=== PATIENT | female | born 1950 | race Asian ===

== ENCOUNTER 2016-10-02 06:51 | Day surgery (SDC) | payer BC, MEDICARE ==
[2016-10-02] VITALS (8 sets, daily range): BP systolic 98–132; BP diastolic 56–77
[~2016-10-02] VITALS: Ht 152.4 cm; Wt 47.6 kg
[~2016-10-02 06:51] MED LIST: ACTONEL35 MG PO; COUMADIN3 MG PO; COUMADIN4 MG PO; METOPROLOL TART25 MG ORAL; SIMVASTATIN40 MG PO; TYLENOL325 MG PO
[2016-10-02] MEDS ORDERED: LR 1000ml 1,000 ML IVLG SCH (07:00)
[2016-10-02] MEDS ORDERED: Propofol 10mg/ml 20ml IV ONE (08:00)
[2016-10-02] MEDS ORDERED: LR 1000ml ONE (08:00)
[2016-10-02] MEDS ORDERED: Lidocaine 1% MPF 10mg/ml 5ml ONE (08:00)
--- NOTE | 2016-10-02 08:10 | Anethesia Preoperative Eval ---
Anesthesia Pre-op PMH/ROS General Date of Evaluation: Oct 02, 2016 Time of Evaluation: 08:08 Anesthesiologist: sintia ASA Score: ASA 2 Mallampati Score Class I : Soft palate, uvula, fauces, pillars visible Class II: Soft palate, uvula, fauces visible Class III: Soft palate, base of uvula visible Class IV: Only hard plate visible Mallampati Classification: Class II Surgeon: cole Diagnosis: colon screening Surgical Procedure: colon screening Anesthesia History: none Family History: no anesthesia problems Allergies: Coded Allergies: No Known Allergies (Unverified , 04/29/12) Medications: see eMAR Past Medical History Cardiovascular: Reports: HTN, valve dz Pulmonary: Reports: COPD, Denies: DEMETRIA, asthma, other Neurologic/Psychiatric: Denies: CVA, TIA, dementia, depression/anxiety, other Endocrine: Denies: DM, hypothyroidism, other, steroids HEENT: Denies: EEK (L), EEK (R), cataract (L), cataract (R), glaucoma, other Hematology/Immune: Denies: DVT, anemia, bleeding disorder, other Musculoskeletal/Integumentary: Denies: DDD, DJD, OA, RA, edema, other PSxH Narrative: valve surgery Anesthesia Pre-op Phys. Exam Physician Exam Last Vital Signs Date Time Temp Pulse Resp B/P Pulse Ox O2 Delivery O2 Flow Rate FiO2 10/02/16 07:13 97.9 71 20 128/77 99 Room Air Constitutional: NAD Neurologic: CN 2-12 intact Cardiovascular: RRR Respiratory: CTA Gastrointestinal: S/NT/ND Airway Exam Mallampati Score: Class II MO: full ROM: full Dentures: no lower, no upper Anesthesia Pre-op A/P Studies Pre-op Studies: EKG - sr Risk Assessment & Plan Plan: mac Status Change Before Surgery: No Pre-Antibiotics Drug: none JESSICA ZHANG LEATHER SORTER Oct 02, 2016 08:10
--- NOTE | 2016-10-02 08:14 | Short Stay Surgery H&P ---
History of Present Illness History of Present Illness Chief Complaint see typed H&P HPI Salena Gupta is a 66 year old female who was admitted on for Colon Screening Patient History Allergies: Coded Allergies: No Known Allergies (Unverified , 04/29/12) PAST MEDICAL HISTORY: Past Surgeries: Social History: Medication History Scheduled Metoprolol Tartrate* (Metoprolol Tartrate*), 25 MG ORAL DAILY, (Reported) Simvastatin (Zocor), 40 MG PO QHS, (Reported) Warfarin Sod* (Coumadin*), 3 MG PO DAILY, (Reported) Discontinued Medications Acetaminophen (Tylenol), 650 MG PO EVERY 4 HOURS PRN, (Reported) Discontinued Reason: Pt stopped taking med Risedronate Sodium (Actonel), 35 MG PO ONCE A WEEK, (Reported) Discontinued Reason: MD discontinued med Warfarin Sod* (Coumadin*), 4 MG PO ONCE A WEEK, (Reported) Discontinued Reason: MD discontinued med Physical Exam Vital Signs Last Vital Signs Date Time Temp Pulse Resp B/P Pulse Ox O2 Delivery O2 Flow Rate FiO2 10/02/16 07:13 97.9 71 20 128/77 99 Room Air Plan Attestation Are the patient's medical conditions optimized for surgery? JERARDO WOODS Oct 02, 2016 08:14
--- NOTE | 2016-10-02 08:14 | Pre-Procedure Note/Attestation ---
Pre-Procedure Note/Attestation Complete Prior to Procedure Planned Procedure: not applicable Procedure Narrative: colon Indications for Procedure Pre-Operative Diagnosis: screening Attestation I attest that I discussed the nature of the procedure; its benefits; risks and complications; and alternatives (and the risks and benefits of such alternatives ), prior to the procedure, with the patient (or the patient's legal vaccine customer representative). I attest that, if there was a reasonable possibility of needing a blood transfusion, the patient (or the patient's legal vaccine customer representative) was given the [facility] standardized written summary, pursuant to the Jacques Mathew Blood Safety Act ([place] Health and Safety Code # 1645, as amended). I attest that I re-evaluated the patient just prior to the surgery and that there has been no change in the patient's H&P, except as documented below: JERARDO WOODS Oct 02, 2016 08:14
--- NOTE | 2016-10-02 08:46 | Endoscopy Procedure Note ---
Endoscopy Procedure Note Indication for Procedure: h/o polyps, screen Procedures Performed: colonoscopy Operative Findings/Diagnosis: mild R tics, mild rhoids Specimen: none Pt Tolerated Procedure Well: Yes Estimated Blood Loss: none Anesthesiologist: see report Anesthesia: MAC Medication Given: see anesthesia record Implant(s) used?: No 50 yrs or older w/o bx or poly: Yes 10yrs. F/U not recommended: Yes If not recommended, why?: 10 yrs. F/U needed: Yes 18 years or older w/prev. colo: Yes <3yrs. since last colonoscopy: No Med reason:<3 yrs.: System Reason:<3 yrs.: Last colonoscopy >= to 3yrs: Yes JERARDO WOODS Oct 02, 2016 08:46
--- NOTE | 2016-10-02 08:49 | Brief Operative Note ---
Immediate Post Operative Note Operative Note Chief Complaint: screen, h/o polyp Pre-op Diagnosis: screening Procedure: colon Post-op Diagnosis: mild R tics, mild rhoids Surgeon: dayron Anesthesiologist: see report Anesthesia: MAC Specimen: none Complications: none Condition: stable Estimated Blood Loss: none Drains: none Implant(s) used?: No JERARDO WOODS Oct 02, 2016 08:49
--- NOTE | 2016-10-02 09:44 | Immediate Post-Op Evaluation ---
Immediate Post-Op Evalulation Immediate Post-Op Evalulation Procedure: colonoscopy Date of Evaluation: Oct 02, 2016 Time of Evaluation: 08:50 IV Fluids: 300 Blood Pressure Systolic: 118 Blood Pressure Diastolic: 50 Pulse Rate: 58 Respiratory Rate: 14 O2 Sat by Pulse Oximetry: 98 Temperature (Fahrenheit): 97.8 Vomiting: No Complications none Patient Status: awake, reacts, patent Hydration Status: adequate Drug: none JESSICA ZHANG CRNA Oct 02, 2016 09:44
--- NOTE | 2016-10-02 09:45 | 48 Hour Post Anesthesia Eval ---
Post Anesthesia Evaluation Procedure: colonoscopy Date of Evaluation: Oct 02, 2016 Time of Evaluation: 09:45 Blood Pressure Systolic: 123 0: 72 Pulse Rate: 67 Respiratory Rate: 14 O2 Sat by Pulse Oximetry: 100 Airway: patent Nausea: No Vomiting: No Hydration Status: adequate Cardiopulmonary Status: stable Mental Status/LOC: patient returned to baseline Post-Anesthesia Complications: none Follow-up care needed: N/A JESSICA ZHANG CRNA Oct 02, 2016 09:45
--- NOTE | 2016-10-02 11:15 | Operative Note - Dictated ---
DATE OF OPERATION: 10/02/2016 PROCEDURE: Colonoscopy. SURGEON: John Huston M.D. ANESTHESIA: Please see the separate anesthesiologist notes for details. PRE-ENDOSCOPIC DIAGNOSIS: Screening and history of colonic polyps. POST-ENDOSCOPIC DIAGNOSES: 1. Mild right-sided diverticulosis. 2. Mild internal hemorrhoids. PROCEDURE: The procedure, its risks, indications, alternatives, and possible complications including, but not limited to, bleeding, infection, perforation, , and anesthesia complications were explained to the patient and informed consent was obtained. The patient was then sedated in the left lateral decubitus position and a diagnostic colonoscope was introduced into the rectum and advanced to the cecum without difficulty. The cecum was identified by the appearance of the ileocecal valve. The colonoscope was then gradually withdrawn. The mucosa examined carefully. Examination of the colonic mucosa revealed mild right-sided diverticulosis. Retroflexed view of the rectum revealed mild internal hemorrhoids. There were no polyps or masses identified. The colonoscope was removed. The patient was sent to recovery in good condition. COMPLICATIONS: None. RECOMMENDATIONS: 1. Resume oral diet. 2. Follow up with primary care physician. Thank you for asking me to participate in care of this patient. John Huston M.D. DR: KIRK JOB#: [id number] CC: John Huston M.D.; Fax#: [phone] Ramin, M.D. ; Fax#: [phone]
== END 2016-10-03 10:20 | disposition home or self-care (01) ==
LOC: GAS 06:51
DX: Z12.11 Encounter for screening for malignant neoplasm of colon (principal); Z86.010 Personal history of colon polyps; K57.30 Diverticulosis of large intestine without perforation or abscess without bleeding; K64.8 Other hemorrhoids; I10 Essential (primary) hypertension; J44.9 Chronic obstructive pulmonary disease, unspecified
CPT/HCPCS: 45378; J2704; J7120; 94003; 94150